=== PATIENT | female | born 1970 | race Caucasian/White ===

== ENCOUNTER 2018-07-11 08:18 | Emergency (ER) | payer MEDICAID, OTHER ==
[2018-07-11 08:35] VITALS: BP 95/62
--- NOTE | 2018-07-11 08:53 | UC ---
UC General HPI - HPI Summary HPI Summary: 48-year-old female with some nausea and dry heaving presents at this time. Her symptoms began earlier today and she is concerned about infection as well as needs a work note. She feels hot but there is no documented fever. She has not vomited or had diarrhea. No discomfort in the abdomen. She has not had significant vomiting but has been spitting up saliva. No blood in her stool. No recent travel, no recent uncooked new food items. Or camping. Not sure of exposure to illness at work. - History of Current Complaint Chief Complaint: UCGI Stated Complaint: VOMITTING/HOT Time Seen by Provider: 07/11/18 08:51 Hx Obtained From: Patient Hx Last Menstrual Period: unknown Onset/Duration: Sudden Onset Pain Intensity: 0 - Allergy/Home Medications Allergies/Adverse Reactions: Allergies Allergy/AdvReac Type Severity Reaction Status Date / Time morphine Allergy Vomiting Verified 07/11/18 08:29 Home Medications: Home Medications Acetaminophen TAB* [Tylenol TAB*] 650 mg PO Q4H PRN 07/11/18 [History Confirmed 07/11/18] PMH/Surg Hx/FS Hx/Imm Hx Previously Healthy: Yes - Surgical History Surgical History: Yes Surgery Procedure, Year, and Place: eye surgery. appy. uterus and fallopion tube. partial hysterectomy. tonsilectomy - Social History Occupation: Employed Full-time - [employer] Alcohol Use: None Substance Use Type: None Smoking Status (MU): Heavy Every Day Tobacco Smoker Type: Cigarettes Amount Used/How Often: 1 PPD Review of Systems Constitutional: Fatigue Gastrointestinal: Nausea Is Patient Immunocompromised?: No All Other Systems Reviewed And Are Negative: Yes Physical Exam Triage Information Reviewed: Yes Appearance: Well-Appearing, No Pain Distress, Well-Nourished Vital Signs: Initial Vital Signs Temp 97.5 F 07/11/18 08:30 Pulse 67 07/11/18 08:30 Resp 14 07/11/18 08:30 BP 95/62 07/11/18 08:30 Pulse Ox 100 07/11/18 08:30 Vital Signs Reviewed: Yes Eye Exam: Normal ENT Exam: Normal Dental Exam: Normal Neck exam: Normal Neck: Positive: 1 Respiratory Exam: Normal Cardiovascular Exam: Normal Abdominal Exam: Normal Musculoskeletal Exam: Normal Neurological Exam: Normal Psychological Exam: Normal Skin Exam: Normal Course/Dx - Course Course Of Treatment: Advised rest and increase fluids with Zofran to reduce nausea. If her symptoms worsen she is aware to seek medical attention at this time. improved with zofran - Differential Dx - Multi-Symptom Provider Diagnoses: Nausea/vomiting Discharge - Sign-Out/Discharge Documenting (check all that apply): Patient Departure All imaging exams completed and their final reports reviewed: No Studies - Discharge Plan Condition: Good Disposition: HOME Prescriptions: Ondansetron [Zofran Odt] 4 mg PO Q8HR PRN 5 Days #15 tab PRN Reason: Nausea Patient Education Materials: Acute Nausea and Vomiting (ED) Forms: *Work Release Referrals: No Primary Care Phys,NOPCP [Primary Care Provider] - - Billing Disposition and Condition Condition: GOOD Disposition: Home
[2018-07-11] MEDS ORDERED: Ondansetron TAB* 4 MG PO ONE (08:57)
[2018-07-11] MEDS: Ondansetron ODT TAB* 4 MG PO ONE (09:06)
== END 2018-07-11 09:38 | disposition home or self-care (01) ==
LOC: UCCORT 08:18
DX: R11.2 Nausea with vomiting, unspecified (principal); Z88.5 Allergy status to narcotic agent; F17.210 Nicotine dependence, cigarettes, uncomplicated
CPT/HCPCS: 99202; A9270-GY; G0463

== ENCOUNTER 2019-04-23 15:13 | Emergency (ER) | payer OTHER ==
[2019-04-23 15:35] VITALS: BP 124/72
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
== END 2019-04-23 16:04 | disposition home or self-care (01) ==
LOC: UCCORT 15:13
DX: G89.29 Other chronic pain (principal); M54.5 Low back pain; F17.210 Nicotine dependence, cigarettes, uncomplicated
CPT/HCPCS: 99211; G0463

== ENCOUNTER 2019-07-21 15:17 | Emergency (ER) | payer OTHER ==
[2019-07-21 16:00] VITALS: BP 114/66
--- NOTE | 2019-07-21 16:18 | UC ---
UC General HPI - HPI Summary HPI Summary: pt is c/o pain to the outside of her R elbow x 2 months. sometimes the discomfort radiates into her forearm. no swelling to arm and no numb/tingling or weakness to hand. she has self tx with occasional nsaid but none today. she has tried an elbow sleeve and an elbow splint that restricted her elbow rom , both were otc. neither gave relief. pt does keyboarding and drives often. - History of Current Complaint Chief Complaint: UCUpperExtremity Stated Complaint: RT ARM INJURY Time Seen by Provider: 07/21/19 15:56 Hx Obtained From: Patient Hx Last Menstrual Period: unknown Timing: Constant Pain Intensity: 7 Aggravating: movement Associated Signs & Symptoms: Negative: Edema, Weakness - Allergy/Home Medications Allergies/Adverse Reactions: Allergies Allergy/AdvReac Type Severity Reaction Status Date / Time morphine AdvReac Vomiting Verified 07/21/19 16:00 PMH/Surg Hx/FS Hx/Imm Hx Previously Healthy: Yes - Surgical History Surgical History: Yes Surgery Procedure, Year, and Place: eye surgery. appy. uterus and fallopion tube. partial hysterectomy. tonsilectomy - Family History Known Family History: Positive: Cardiac Disease, Hypertension, Diabetes, Other - cancer - Social History Occupation: Employed Full-time Alcohol Use: Occasionally Substance Use Type: None Smoking Status (MU): Heavy Every Day Tobacco Smoker Type: Cigarettes Amount Used/How Often: 1 PPD Length of Time of Smoking/Using Tobacco: since age 15 Have You Smoked in the Last Year: Yes Review of Systems All Other Systems Reviewed And Are Negative: No Constitutional: Negative: Fever Skin: Negative: Rash Musculoskeletal: Negative: Decreased ROM Neurological: Negative: Weakness, Paresthesia, Numbness Physical Exam Triage Information Reviewed: Yes Appearance: Well-Appearing Vital Signs: Initial Vital Signs Temp 99.2 F 07/21/19 15:53 Pulse 62 07/21/19 15:53 Resp 16 07/21/19 15:53 BP 114/66 07/21/19 15:53 Pulse Ox 98 07/21/19 15:53 Vital Signs Reviewed: Yes Cardiovascular: Positive: RRR Musculoskeletal: Positive: Other: - RUE: shoulder, forearm, wrist and hand are without deformity or tenderness. elbow has no deformity or swelling. pt is tender over her lateral epicondyl. rom is intact. forced flexion is painless; however, extension against resistance causes/worsens pain. hamd has full s/v/m function. Neurological: Positive: Alert Psychological: Positive: Age Appropriate Behavior Skin Exam: Normal Skin: Negative: Rashes Diagnostics - Radiology No standard instances Radiology Interpretation Completed By: Radiologist - IMPRESSION: Unremarkable right elbow. Course/Dx - Diagnoses Provider Diagnosis: Lateral epicondylitis of right elbow Discharge ED - Sign-Out/Discharge Documenting (check all that apply): Patient Departure All imaging exams completed and their final reports reviewed: Yes - Discharge Plan Condition: Stable Disposition: HOME Prescriptions: Naproxen [Naprosyn 500 mg tab] 500 mg PO BID 7 Days #14 tablet Patient Education Materials: Tennis Elbow (ED) Referrals: Kaiser Aleman MD [Medical Doctor] - 5 Days Additional Instructions: USE AN ELBOW FOREARM STRAP DAILY, REMOVE IT FOR BEDTIME. - Billing Disposition and Condition Condition: STABLE Disposition: Home
[2019-07-21] MEDS ORDERED: Ibuprofen ADULT LIQ* 600 MG/30 ML UDC PO ONE (16:21)
== END 2019-07-21 17:31 | disposition home or self-care (01) ==
LOC: UCCORT 15:17
DX: M77.11 Lateral epicondylitis, right elbow (principal); F17.210 Nicotine dependence, cigarettes, uncomplicated
CPT/HCPCS: 99212; A9270-GY; G0463